=== PATIENT | male | born 1970 | race Caucasian/White ===

== ENCOUNTER 2019-08-10 08:43 | Emergency (ER) | payer MEDICAID ==
[~2019-08-10] VITALS: Ht 175.3 cm; Wt 64.0 kg
[2019-08-10 10:17] VITALS: BP 124/75
[2019-08-10] MEDS: IBUPROFEN 800MG TABLET PO ONE (10:17)
== END 2019-08-10 10:23 | disposition home or self-care (01) ==
LOC: ER 08:43
DX: S39.012A Strain of muscle, fascia and tendon of lower back, initial encounter (principal); E11.9 Type 2 diabetes mellitus without complications; I10 Essential (primary) hypertension; F17.200 Nicotine dependence, unspecified, uncomplicated; E78.00 Pure hypercholesterolemia, unspecified; X50.0XXA Overexertion from strenuous movement or load, initial encounter; X50.9XXA Other and unspecified overexertion or strenuous movements or postures, initial encounter; Y93.89 Activity, other specified; Y92.69 Other specified industrial and construction area as the place of occurrence of the external cause; Y99.8 Other external cause status
CPT/HCPCS: 99283

== ENCOUNTER 2020-04-10 10:07 | Inpatient (IN) | payer MEDICAID ==
[~2020-04-10] VITALS: Ht 172.7 cm; Wt 79.0 kg
[2020-04-10 12:00] LABS: BASOPHILS % 1.9 % (0.0-2.0); EOSINOPHILS % 2.3 % (0.0-5.0); HEMATOCRIT. 22.2 % (42.0-52.0); HEMOGLOBIN. 7.1 g/dL (14.0-18.0); LYMPHOCYTES % 41.7 % (20.0-50.0); MEAN CORPUSCULAR HEMOGLOBIN 23.9 pg (28.0-32.0); MEAN PLATELET VOLUME 7.6 fl (7.4-10.4); MONOCYTES % 10.9 % (2.0-8.0); NEUTROPHILS % 43.2 % (40.0-76.0); PLATELET 120 x1000/uL (130-400); RED BLOOD CELL COUNT 2.97 mill/uL (4.7-6.1); RED CELL DISTRIBUTION WIDTH 22.3 % (11.6-14.6)
[2020-04-10 12:13] LABS: CHLORIDE 96 mEq/L (98-107)
[2020-04-10 12:14] LABS: CLARITY URINE CLEAR (CLEAR); COLOR URINE YELLOW (YELLOW); KETONES URINE NEGATIVE (NEGATIVE); LEUKOCYTE ESTERASE URINE NEGATIVE (NEGATIVE); NITRITE URINE NEGATIVE (NEGATIVE); OCCULT BLOOD URINE NEGATIVE (NEGATIVE); PH URINE 7.5 (4.5-8.0); PROTEIN URINE 1+ (NEGATIVE); SPECIFIC GRAVITY URINE 1.008 (1.005-1.030); UROBILINOGEN URINE 0.2 E.U./dL (0.2-1.0)
[2020-04-10 12:48] LABS: PLATELET ESTIMATE SLIGHTLY DECREASED
[2020-04-10 14:37] LABS: INR 1.7; PROTHROMBIN TIME 17.7 sec (9.6-11.0)
[2020-04-10] MEDS ORDERED: ACETAMINOPHEN 325MG TABLET PO PRN (18:00)
[2020-04-10] MEDS ORDERED: ONDANSETRON HCL 4MG/2ML INJ IV PRN (18:00)
[2020-04-10] MEDS ORDERED: IPRATROPIUM/ALBUTEROL 0.5-3(2.5)MG/3ML NEB HHN PRN (18:00)
[2020-04-10] MEDS ORDERED: LORAZEPAM 0.5MG TABLET PO PRN (18:00)
[2020-04-10] MEDS ORDERED: DOCUSATE SODIUM 100MG CAPSULE PO PRN (18:00)
[2020-04-10 23:40] LABS: MEAN CORPUSCULAR HEMOGLOBIN 23.8 pg (28.0-32.0); MEAN CORPUSCULAR VOLUME 74.7 fL (80.0-94.0); PLATELET 107 x1000/uL (130-400); RED BLOOD CELL COUNT 2.81 mill/uL (4.7-6.1); RED CELL DISTRIBUTION WIDTH 21.8 % (11.6-14.6)
[2020-04-10 23:51] LABS: HEMOGLOBIN 6.7 g/dL (14.0-18.0)
[2020-04-11 06:03] LABS: EOSINOPHILS % 6.5 % (0.0-5.0); LYMPHOCYTES % 41.7 % (20.0-50.0); MEAN CORPUSCULAR HEMOGLOBIN 23.4 pg (28.0-32.0); MEAN CORPUSCULAR VOLUME 74.2 fL (80.0-94.0); MONOCYTES % 13.9 % (2.0-8.0); NEUTROPHILS % 36.9 % (40.0-76.0); PLATELET 95 x1000/uL (130-400); RED BLOOD CELL COUNT 2.76 mill/uL (4.7-6.1); RED CELL DISTRIBUTION WIDTH 22.8 % (11.6-14.6)
[2020-04-11 06:09] LABS: HEMATOCRIT. 20.5 % (42.0-52.0); HEMOGLOBIN. 6.5 g/dL (14.0-18.0)
[2020-04-11 06:11] LABS: CHLORIDE 98 mEq/L (98-107)
[2020-04-11 06:15] LABS: PHOSPHORUS 4.4 mg/dL (2.5-4.9)
[2020-04-11 06:16] LABS: LDL CHOLESTEROL 55 mg/dL (5-100)
[2020-04-11 06:19] LABS: HDL CHOLESTEROL 21 mg/dL (40-59); TOTAL IRON BINDING CAPACITY 421 ug/dL (250-450)
[2020-04-11 06:31] LABS: FOLIC ACID (FOLATE) SERUM 10.1 ng/mL (>5.38)
[2020-04-11] MEDS: FUROSEMIDE 40MG/4ML VIAL IVP SCH ×2 (07:45→17:15)
[2020-04-11] MEDS ORDERED: MAGNESIUM 4 G PREMIX 100 ML IV NR (10:00)
[2020-04-11] MEDS ORDERED: DILTIAZEM HCL 5MG/ML 5ML VIAL IV PRN (11:30)
[2020-04-11 11:33] LABS: *AMPHETAMINES SCREEN URINE NEGATIVE (NEGATIVE); *BARBITURATES SCREEN URINE NEGATIVE (NEGATIVE); *BENZODIAZEPINES SCREEN URINE NEGATIVE (NEGATIVE); *COCAINE SCREEN URINE PRESUMTIVE POSITIVE (NEGATIVE); OPIATES URINE SCREEN NEGATIVE (NEGATIVE)
[2020-04-11 11:34] LABS: CANNABINOID URINE SCREEN NEGATIVE (NEGATIVE)
[2020-04-11 11:47] LABS: METHADONE URINE SCREEN NEGATIVE (NEGATIVE)
[2020-04-11 11:50] LABS: HEPATITIS B SURFACE ANTIGEN NEGATIVE
[2020-04-11 11:59] LABS: PHENCYCLIDINE URINE SCREEN NEGATIVE (NEGATIVE)
[2020-04-11 12:20] LABS: HEPATITIS A AB IGM NEGATIVE (NEGATIVE)
[2020-04-11] MEDS ORDERED: DILTIAZEM HCL 60MG TABLET PO SCH (13:00)
[2020-04-11] MEDS ORDERED: CARVEDILOL 3.125 MG TABLET PO SCH (13:00)
[2020-04-11] MEDS: OMEPRAZOLE 20MG CAPSULE EXTENDED RELEASE PO SCH ×2 (16:45→21:21)
[2020-04-11 17:14] LABS: TOTAL IRON BINDING CAPACITY 437 ug/dL (250-450)
[2020-04-11] MEDS ORDERED: DILTIAZEM HCL 30MG TABLET PO SCH (18:30)
[2020-04-11] MEDS ORDERED: SODIUM CHLORIDE 0.9% 250 ML IV ONE (18:45)
[2020-04-12 04:54] LABS: BASOPHILS % 1.1 % (0.0-2.0); EOSINOPHILS % 5.2 % (0.0-5.0); HEMATOCRIT. 22.9 % (42.0-52.0); HEMOGLOBIN. 7.3 g/dL (14.0-18.0); LYMPHOCYTES % 37.8 % (20.0-50.0); MEAN CORPUSCULAR HEMOGLOBIN 24.2 pg (28.0-32.0); MEAN PLATELET VOLUME 7.7 fl (7.4-10.4); MONOCYTES % 13.6 % (2.0-8.0); NEUTROPHILS % 42.3 % (40.0-76.0); PLATELET 94 x1000/uL (130-400); RED BLOOD CELL COUNT 3.02 mill/uL (4.7-6.1)
[2020-04-12 05:00] LABS: CHLORIDE 101 mEq/L (98-107)
[2020-04-12] MEDS: DILTIAZEM HCL 30MG TABLET PO SCH ×4 (06:00→17:55)
[2020-04-12] MEDS: FUROSEMIDE 40MG/4ML VIAL IVP SCH ×2 (07:15→17:15)
[2020-04-12] MEDS: OMEPRAZOLE 20MG CAPSULE EXTENDED RELEASE PO SCH ×2 (07:50→20:50)
[2020-04-12] MEDS: FERROUS SULFATE 325MG TABLET PO SCH ×3 (09:00→17:47)
[2020-04-12] MEDS ORDERED: MAGNESIUM 2 G PREMIX 50 ML IV NR (09:45)
[2020-04-12 11:05] VITALS: BP 134/99
[2020-04-12 12:00] VITALS: BP 134/99
[2020-04-12 16:00] VITALS: BP 100/65
[2020-04-12] MEDS ORDERED: PHYTONADIONE 10MG/ML AMP SUBCUT SCH (17:30)
[2020-04-12 19:53] LABS: HEMATOCRIT 23.9 % (42.0-52.0); HEMOGLOBIN 7.5 g/dL (14.0-18.0)
[2020-04-12 20:00] VITALS: BP 100/69
[2020-04-12] MEDS ORDERED: MAGNESIUM 2 G PREMIX 50 ML IV SCH (20:00)
[2020-04-12 22:00] VITALS: BP 114/69
[2020-04-13] VITALS (12 sets, daily range): BP systolic 102–126; BP diastolic 68–89
[2020-04-13] MEDS: DILTIAZEM HCL 30MG TABLET PO SCH ×3 (00:48→13:00)
[2020-04-13] MEDS ORDERED: DEXTROSE 50% WATER 50ML SYRINGE IV PRN (05:15)
[2020-04-13] MEDS: FUROSEMIDE 40MG/4ML VIAL IVP SCH ×2 (06:14→18:13)
[2020-04-13] MEDS: BLOOD SUGAR DIAGNOSTIC STRIP TEST SCH ×4 (06:14→21:00)
[2020-04-13] MEDS: OMEPRAZOLE 20MG CAPSULE EXTENDED RELEASE PO SCH ×2 (06:14→22:20)
[2020-04-13 06:19] LABS: INR 1.6; PROTHROMBIN TIME 17.2 sec (9.6-11.0)
[2020-04-13] MEDS: INSULIN LISPRO 100 UNITS/ML SUBCUT SCH ×4 (06:20→21:00)
[2020-04-13] MEDS: FERROUS SULFATE 325MG TABLET PO SCH ×3 (06:21→18:13)
[2020-04-13 06:25] LABS: BASOPHILS % 1.1 % (0.0-2.0); HEMATOCRIT. 23.2 % (42.0-52.0); HEMOGLOBIN. 7.5 g/dL (14.0-18.0); LYMPHOCYTES % 37.1 % (20.0-50.0); MEAN CORPUSCULAR HEMOGLOBIN 24.8 pg (28.0-32.0); MEAN CORPUSCULAR VOLUME 76.5 fL (80.0-94.0); MEAN PLATELET VOLUME 8.8 fl (7.4-10.4); MONOCYTES % 12.9 % (2.0-8.0); NEUTROPHILS % 44.9 % (40.0-76.0); PLATELET 99 x1000/uL (130-400); RED BLOOD CELL COUNT 3.04 mill/uL (4.7-6.1)
[2020-04-13 06:30] LABS: CHLORIDE 102 mEq/L (98-107)
[2020-04-13] MEDS ORDERED: PHYTONADIONE 10MG/ML AMP SUBCUT NR (07:15)
[2020-04-13] MEDS ORDERED: MAGNESIUM 2 G PREMIX 50 ML IV NR (10:00)
[2020-04-13] MEDS: METOCLOPRAMIDE HCL 10MG/2ML VIAL IV SCH ×2 (13:04→13:31)
[2020-04-13] MEDS ORDERED: FENTANYL CITRATE/PF 50MCG/ML 2ML VIAL ONE (16:34)
[2020-04-13] MEDS ORDERED: MIDAZOLAM HCL 2 MG/2 ML VIAL ONE (16:34)
[2020-04-13] MEDS ORDERED: DIPHENHYDRAMINE 50MG/ML VIAL ONE (16:35)
[2020-04-13] MEDS: DIGOXIN 250MCG TABLET PO SCH (18:13)
[2020-04-13 20:32] LABS: HEMATOCRIT 26.7 % (42.0-52.0); HEMOGLOBIN 8.6 g/dL (14.0-18.0)
[2020-04-13] MEDS: CARVEDILOL 3.125 MG TABLET PO SCH (22:20)
[2020-04-14 00:20] VITALS: BP 90/61
[2020-04-14 04:28] VITALS: BP 124/81
[2020-04-14] MEDS: FUROSEMIDE 40MG/4ML VIAL IVP SCH ×2 (06:50→18:39)
[2020-04-14] MEDS: OMEPRAZOLE 20MG CAPSULE EXTENDED RELEASE PO SCH (06:50)
[2020-04-14] MEDS: BLOOD SUGAR DIAGNOSTIC STRIP TEST SCH ×3 (06:50→17:20)
[2020-04-14] MEDS: INSULIN LISPRO 100 UNITS/ML SUBCUT SCH ×3 (06:50→17:50)
[2020-04-14 07:26] LABS: CHLORIDE 99 mEq/L (98-107)
[2020-04-14 07:38] LABS: BASOPHILS % 0.8 % (0.0-2.0); EOSINOPHILS % 6.1 % (0.0-5.0); HEMOGLOBIN. 8.2 g/dL (14.0-18.0); LYMPHOCYTES % 36.5 % (20.0-50.0); MEAN CORPUSCULAR VOLUME 76.1 fL (80.0-94.0); MEAN PLATELET VOLUME 8.7 fl (7.4-10.4); MONOCYTES % 13.3 % (2.0-8.0); NEUTROPHILS % 43.3 % (40.0-76.0); PLATELET 96 x1000/uL (130-400); RED BLOOD CELL COUNT 3.28 mill/uL (4.7-6.1); RED CELL DISTRIBUTION WIDTH 23.1 % (11.6-14.6)
[2020-04-14 08:00] VITALS: BP 128/86
[2020-04-14] MEDS: FERROUS SULFATE 325MG TABLET PO SCH ×3 (08:46→18:39)
[2020-04-14] MEDS: CARVEDILOL 3.125 MG TABLET PO SCH (08:46)
[2020-04-14 12:00] VITALS: BP 127/89
[2020-04-14] MEDS ORDERED: FURO-151 MT (15:37)
[2020-04-14] MEDS ORDERED: DIGO-28 PO (15:37)
[2020-04-14] MEDS ORDERED: OMEP20CA14 PO (15:37)
[2020-04-14] MEDS ORDERED: FERR325T23 PO (15:37)
[2020-04-14] MEDS ORDERED: COR6 PO (15:37)
[2020-04-14 16:00] VITALS: BP 134/97
[2020-04-14] MEDS ORDERED: IRON SUCROSE COMPLEX 100 MG/5 ML ML IV NR (18:00)
[2020-04-14] MEDS: DIGOXIN 250MCG TABLET PO SCH (18:39)
[2020-04-14 18:51] VITALS: BP 134/97
[2020-04-14] MEDS ORDERED: CARVEDILOL 6.25 MG TABLET PO SCH (21:00)
== END 2020-04-14 19:00 | disposition home or self-care (01) | DRG 133 ==
LOC: ER 10:25 → 6WST 13:05 → ENRESERV 04-11 14:46 → CANRESERV 04-11 14:46 → EDBEDREQTM 04-11 17:33 → EDBEDREQ 04-11 17:33 → EDBEDREQDT 04-11 17:33 → EDBEDREQSVC 04-11 17:33 → ENRESERV 04-12 10:08
PROVIDERS: ADMIT Internal Medicine; ATTEND Internal Medicine
PROC: 30233K1 Transfusion of Nonautologous Frozen Plasma into Peripheral Vein, Percutaneous Approach (ICD-10-PCS; 2020-04-11)
PROC: 30233N1 Transfusion of Nonautologous Red Blood Cells into Peripheral Vein, Percutaneous Approach (ICD-10-PCS; 2020-04-13)
PROC: 0DB78ZX Excision of Stomach, Pylorus, Via Natural or Artificial Opening Endoscopic, Diagnostic (ICD-10-PCS; principal; 2020-04-14)
DX: J96.00 Acute respiratory failure, unspecified whether with hypoxia or hypercapnia (principal); I50.43 Acute on chronic combined systolic (congestive) and diastolic (congestive) heart failure; D61.818 Other pancytopenia; D68.9 Coagulation defect, unspecified; J91.8 Pleural effusion in other conditions classified elsewhere; E83.42 Hypomagnesemia; E83.51 Hypocalcemia; I11.0 Hypertensive heart disease with heart failure; D50.9 Iron deficiency anemia, unspecified; I42.2 Other hypertrophic cardiomyopathy; E87.1 Hypo-osmolality and hyponatremia; D72.821 Monocytosis (symptomatic); E11.9 Type 2 diabetes mellitus without complications; E78.00 Pure hypercholesterolemia, unspecified; I08.1 Rheumatic disorders of both mitral and tricuspid valves; E78.5 Hyperlipidemia, unspecified; I48.91 Unspecified atrial fibrillation; K76.6 Portal hypertension; K76.0 Fatty (change of) liver, not elsewhere classified; I85.10 Secondary esophageal varices without bleeding; K29.70 Gastritis, unspecified, without bleeding; K31.89 Other diseases of stomach and duodenum; K74.60 Unspecified cirrhosis of liver; Z79.84 Long term (current) use of oral hypoglycemic drugs; Z79.899 Other long term (current) drug therapy; Z79.01 Long term (current) use of anticoagulants; K70.9 Alcoholic liver disease, unspecified
CPT/HCPCS: 36415; 71045; 76700; 80048; 80053; 80305; 81003; 82270; 82962; 83036; 83735; 83880; 84295; 84484; 85014; 85018; 85025; 85027; 85044; 86850; 86900; 86920; 86927; 88305; 88312; 88313; 93005; 93306; 96366; 96375; 99285; J1200; J1940; J2250; J2765; J3010; J3430; J3475; P9016; P9017

== ENCOUNTER 2021-01-13 20:06 | Emergency (ER) | payer MEDICAID ==
[~2021-01-13] VITALS: Ht 170.2 cm; Wt 86.4 kg
[~2021-01-13 20:06] MED LIST: COR6 PO; DIGO-28 PO; FERR325T23 PO; FURO-151 MT; OMEP20CA14 PO
[2021-01-14 00:47] VITALS: BP 124/77
== END 2021-01-14 00:53 | disposition home or self-care (01) ==
LOC: ER 20:06
DX: S09.90XA Unspecified injury of head, initial encounter (principal); E11.9 Type 2 diabetes mellitus without complications; I10 Essential (primary) hypertension; Z86.711 Personal history of pulmonary embolism; Z79.01 Long term (current) use of anticoagulants; W01.0XXA Fall on same level from slipping, tripping and stumbling without subsequent striking against object, initial encounter; Y93.89 Activity, other specified; Y92.018 Other place in single-family (private) house as the place of occurrence of the external cause
CPT/HCPCS: 70486; 93005; 99285